=== PATIENT | female | born 1955 | race Caucasian/White ===

== ENCOUNTER 2022-01-11 16:05 | Outpatient (REF) | payer OTHER, SELFPAY | END 2022-01-11 16:06 | disposition home or self-care (01) | LOC: LBN 16:05 | PROVIDERS: PCP Internal Medicine; Visit Provider Obstetrics & Gynecology | DX: N39.0 Urinary tract infection, site not specified (principal) | CPT/HCPCS: 87077; 87086; 87186 ==

== ENCOUNTER 2022-03-01 02:14 | Outpatient (CLI) | payer OTHER, SELFPAY ==
[2022-03-01 11:08] LABS: HCT 40.3 % (36.0-46.0); HGB 13.6 g/dL (11.2-15.7); MCH 31.1 pg (27.0-33.0); MCHC 33.7 % (32.0-36.0); MCV 92 fL (80-95); Platelet Count 294 10^3/uL (130-400); RBC 4.37 10^6/uL (3.93-5.22); RDW 12.1 % (11.7-14.6); RDW-SD 41.1 fL; WBC 6.82 10^3/uL (4.4-10.8)
== END 2022-03-01 02:15 | disposition home or self-care (01) ==
LOC: LBO 02:14
PROVIDERS: PCP Internal Medicine; Visit Provider Obstetrics & Gynecology
DX: Z01.818 Encounter for other preprocedural examination (principal)
CPT/HCPCS: 36415; 85027; 86850; 86900; 86901

== ENCOUNTER 2022-03-02 05:56 | Day surgery (SDC) | payer OTHER, SELFPAY ==
[2022-03-02 06:15] VITALS: BP 134/84; PULSE 76; RESP 18; TEMP 37.1; O2SAT 99
[2022-03-02] MEDS: Lactated Ringers 1,000 ML 125 ML IV (06:45)
--- NOTE | 2022-03-02 07:07 | W.ANESPRE ---
General Info Date of Service Date Performed: 03/02/22 Height: 5 ft 5 in Weight: 61.1 kg Body Mass Index (BMI): 22.4 Surgical Procedure: Operation Date: 03/02/22 07:40 Proposed Procedure Side Surgeon p Dilation & Curettage with Hysteroscopy, MYOSURE DO Mirian Armstrong Allergies and Home Medications Allergies Allergy/AdvReac Type Severity Reaction Status Date / Time No Known Allergies Allergy Verified 03/02/22 06:08 Home Medication Medication Instructions Recorded atorvastatin 10 mg tablet 10 mg PO DAILY 11/18/20 levothyroxine 88 mcg tablet 88 mcg PO HS 11/18/20 lisinopril 5 mg tablet 5 mg PO DAILY 01/11/22 cholecalciferol (vitamin D3) 25 mcg PO DAILY 02/28/22 mcg (1,000 unit) tablet (Vitamin D3) biotin 1,000 mcg chewable tablet 5,000 mcg PO DAILY 03/01/22 calcium carbonate 600 mg calcium 600 mg PO DAILY 03/01/22 (1,500 mg) tablet (Calcium) glucosamine sulfate 2KCl 1,000 mg 1,000 mg PO BID 03/01/22 capsule PFSH Active Problems Active Problems: Problem Status Onset Code Urinary tract infection N39.0 Abnormal endometrial ultrasound R93.5 H/O colonoscopy Z98.890 Hx of cataract surgery Z98.49 Posttraumatic stress disorder F43.10 Epidermoid cyst of skin L72.0 Hypothyroidism E03.9 Hypertensive disorder I10 Depressed mood R45.89 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 R91.8 Mitral valve regurgitation I34.0 Tobacco Smoking/Tobacco Use Status: Former Tobacco Use Alcohol Alcohol Intake: current Alcohol intake frequency: a few times a week Vital Signs and Lab Results Vital Signs Most Recent Vital Signs in EMR: Most Recent Vital Signs Temp Pulse Resp BP Pulse Ox 37.1 C 76 18 134/84 99 03/02/22 06:15 03/02/22 06:15 03/02/22 06:15 03/02/22 06:15 03/02/22 06:15 Lab Results Blood Type / Crossmatch: Patient ABO/Rh B Positive 03/01/22 Antibody Screen NEGATIVE 03/01/22 Complete Blood Count: White Blood Count 6.82 10^3/uL (4.4-10.8) 03/01/22 11:00 Red Blood Count 4.37 10^6/uL (3.93-5.22) 03/01/22 11:00 Hemoglobin 13.6 g/dL (11.2-15.7) 03/01/22 11:00 Hematocrit 40.3 % (36.0-46.0) 03/01/22 11:00 Platelet Count 294 10^3/uL (130-400) 03/01/22 11:00 Complete Metabolic Panel: No Data to Display Liver Function Panel: No Data to Display Coagulation Panel: No Data to Display Cardiac Panel: No Data to Display Arterial Blood Gas: No Data to Display Venous Blood Gas: No Data to Display Pancreas Panel: No Data to Display Thyroid Panel: No Data to Display Infectious Disease: No Data to Display Blood Cultures: No Data to Display Toxicology Panel: No Data to Display Anesthesia Assessment and Plan Anesthesia History Personal History: No History of Anesthesia Complications Family History: No Family History of Anesthesia Complications Exercise Tolerance Exercise Tolerance: Metabolic Equivalents>4 Pertinent Negatives Pertinent Negatives: No Symptoms of GERD, No Major Cardiovascular Symptoms or Complaints, No Major Pulmonary Symptoms or Complaints and No History of CVA/TIA Cardiac & Pulmonary Exam Cardiac Exam: Normal S1/S2 Heart Sounds Pulmonary Exam: Clear Bilateral Breath Sounds Implantable Cardiac Device Does patient have a Pacemaker or an ICD?: No Airway Exam Known Difficult Airway: No Mallampati Class: 1 Mouth Opening: Normal (> 3cm) Thyromental Distance: Greater than 3 cm Neck Range of Motion: Full ROM Neck Circumference: Normal Teeth Condition: Removable Dentures/Plates Upper and Removable Dentures/Plates Lower (Partial ) ASA Classification ASA Score: ASA 2 Emergency Case?: No NPO Status NPO Status: NPO Clears >2 hours, Solids >8 hours Anesthesia Plan Resuscitation Status: Full Code Anesthesia Technique: General Anesthesia Airway Planned: Natural Airway Monitors Used: Standard Monitors Preoperative Comments:: Quit smoking 2007
[2022-03-02 07:10] VITALS: BMI 22.4
--- NOTE | 2022-03-02 08:34 | ENDO_PTH ---
PATIENT: Tiff Chatterjee LOC: [facility] U#:[id number] AGE/SX: 66/F ROOM: RE03/02/[address]: Kaley Urbano DO : 1955 BED: DIS: 03/02/2022 SPEC #: [id number] RECD: 03/02/22 12:45 STATUS: JAROCHO REQ #: [id number] ABDELRAHMAN: 03/02/22 08:[address]: Kaley Urbano DEPT: Surgical Specimen RECD BY: Norma Mcgee ENTERED: 03/02/22 12:48 SP TYPE: Endo OTHR DR: Elayne Brady Tissues: 1 - ENDOCERVICAL BX/CURRETTE 2 - ENDOMETRIUM BX/CURRETTE Procedures: GROSS AND MICRO LEVEL 4 Comments: [id number]
--- NOTE | 2022-03-02 08:51 | W.PM.OP ---
Date of service: 03/02/22 Time of Service: 08:52 Operative Note Operative Note DATE OF PROCEDURE: 03/02/22 PRE-OP DIAGNOSIS: Endometrial fluid collection POST-OP DIAGNOSIS: same PROCEDURE: Hysteroscopy with dilation and curettage SURGEON: Kaley Urbano ANESTHESIA TYPE: General:No Airway Refer to Anesthesia Record ESTIMATED BLOOD LOSS: 5 PATHOLOGY: other (1. Endocervical curettage 2. Endometrial curettage) COMPLICATIONS: None Patient was transported to: same day Patient's condition: stable Indications: Endometrial fluid collection Findings: Vulvovaginal and cervical atrophy. Cervical stenosis. Smooth, regular, endometrial cavity. Scant tissue from endocervical and endometrial curettings Procedure Description: After full informed consent was obtained, patient was taken the operating suite with an IV running. She was placed in the dorsal supine position and anesthesia administered. She was then placed in the modified dorsal lithotomy position in yellowfin stirrups and prepped and draped in the usual sterile fashion. Exam under anesthesia revealed vulvovaginal atrophy, uterus that small, midline, mobile without evidence of adnexal masses. Bladder was drained for approximately 150 cc of clear yellow urine. Speculum was inserted to the posterior vaginal vault and a single-tooth tenaculum was used to grasp the anterior lip of the cervix. Cervical os dilated to point that a 5 mm hysteroscope could be passed with ease. With a fluid collection system normal saline was instilled into the endometrial cavity. The cavity was small, smooth, regular, no evidence of polyps, fibroids, or masses. In a systematic fashion first endocervical cells were collected followed by endometrial curettings. Both tissue was exceedingly scant due to the thin, atrophic nature of both endocervical and endometrial canals. At this point, procedure was terminated. Tenaculum was released and puncture sites found to be hemostatic. Speculum was removed from the posterior vaginal vault. Total fluid deficit was 120 mL. She was returned to the dorsal supine position and awoke from anesthesia with ease. She is taken the recovery room in stable condition. Complications: None apparent Findings: Thin, smooth, regular endometrial endocervical cavity with no evidence of polyp or fibroid. Pathology: 1. Endocervical curettage 2. Endometrial curettage Fluids: Crystalloid per anesthesia Fluid deficit 120 mL of normal saline.
[2022-03-02 08:55] VITALS: BP 99/79; PULSE 72; RESP 16; TEMP 36.1; O2SAT 97
--- NOTE | 2022-03-02 08:57 | W.ANESPOSTOP ---
Postoperative Evaluation Date, Time and Location Date Performed: 03/02/22 Time Performed: 08:58 Patient Location: Day Surgery Unit Vital Signs Most Recent Imported Vital Signs: Most Recent Vital Signs Temp Pulse Resp BP Pulse Ox 37.1 C 76 18 134/84 99 03/02/22 06:15 03/02/22 06:15 03/02/22 06:15 03/02/22 06:15 03/02/22 06:15 Most Recent Manually Entered Vital Signs: Adult Blood Pressure: 99/79 Heart Rate: 71 Respirations: 12 Oxygen Saturation (%): 97 Temperature (C): 36.1 C Pain Score (0-10 Scale): 0 Assessment Mental Status: Arousable with meaningful communication Airway and Respiratory Function: Patent airway with normal (patient baseline) respiratory exam Cardiovascular Function: Hemodynamically Stable Hydration Status: Adequately Hydrated Nausea & Vomiting: No Nausea or Vomiting Pain: Pt. Denies Any Pain Peripheral Nerve Block: Patient did not receive a nerve block
[2022-03-02 08:59] VITALS: BP 99/79; PULSE 71; RESP 12; TEMPC 36.1; O2SAT 97
[2022-03-02 09:30] VITALS: BP 132/83; PULSE 73; RESP 18; TEMP 36; O2SAT 98
== END 2022-03-02 10:05 | disposition home or self-care (01) ==
PROVIDERS: PCP Internal Medicine; Visit Provider Obstetrics & Gynecology
PROC: 0UDB8ZZ Extraction of Endometrium, Via Natural or Artificial Opening Endoscopic (ICD-10-PCS; CPT 58558; principal; 2022-03-02 07:30)
DX: R93.5 Abnormal findings on diagnostic imaging of other abdominal regions, including retroperitoneum (principal); E03.9 Hypothyroidism, unspecified; I10 Essential (primary) hypertension; R91.8 Other nonspecific abnormal finding of lung field; N88.2 Stricture and stenosis of cervix uteri; N95.2 Postmenopausal atrophic vaginitis
CPT/HCPCS: 58558; 88305; J1100; J1885; J2250; J2405